=== PATIENT | female | born 1955 | race Caucasian/White ===

== ENCOUNTER 2016-07-31 11:31 | Outpatient (CLI) | payer OTHER ==
[2016-07-31 12:32] LABS: ALBUMIN 4.2 g/dL (3.4-4.8); CREATININE 0.78 mg/dL (0.55-1.30); POTASSIUM 4.8 mmol/L (3.5-5.1); TOTAL BILIRUBIN 0.4 mg/dL (0.0-1.0); TOTAL PROTEIN, SERUM 8.4 g/dL (6.4-8.3)
== END 2016-07-31 20:00 | disposition home or self-care (01) ==
LOC: SLB 11:31
PROVIDERS: ATTEND Internal Medicine
DX: I10 Essential (primary) hypertension (principal); R73.03 Prediabetes
CPT/HCPCS: 36415; 80053; 80061; 82306; 83036

== ENCOUNTER 2016-12-07 08:13 | Outpatient (CLI) | payer OTHER ==
[2016-12-07 09:05] LABS: CALCIUM 9.8 mg/dL (8.4-11.0); CREATININE 0.75 mg/dL (0.55-1.30); POTASSIUM 4.7 mmol/L (3.5-5.1); TOTAL BILIRUBIN 0.4 mg/dL (0.0-1.0); TOTAL PROTEIN, SERUM 8.8 g/dL (6.4-8.3)
== END 2016-12-07 21:01 | disposition home or self-care (01) ==
LOC: SLB 08:13
PROVIDERS: ATTEND Internal Medicine
DX: E11.8 Type 2 diabetes mellitus with unspecified complications (principal); I10 Essential (primary) hypertension
CPT/HCPCS: 36415; 80053; 80061; 83036

== ENCOUNTER 2017-01-30 10:50 | Outpatient (CLI) | payer OTHER | END 2017-01-30 19:08 | disposition home or self-care (01) | LOC: SCA 10:50 | PROVIDERS: ATTEND Internal Medicine Cardiovascular Disease | DX: I10 Essential (primary) hypertension (principal); E78.5 Hyperlipidemia, unspecified; M79.602 Pain in left arm | CPT/HCPCS: 93017 ==

== ENCOUNTER 2017-05-05 08:23 | Outpatient (CLI) | payer OTHER ==
[2017-05-05 11:41] LABS: POTASSIUM 4.3 mmol/L (3.5-5.1)
[2017-05-05 11:42] LABS: CALCIUM 9.8 mg/dL (8.4-11.0); CREATININE 0.59 mg/dL (0.55-1.30)
[2017-05-06 11:05] LABS: TOTAL BILIRUBIN 0.3 mg/dL (0.0-1.0)
[2017-05-06 11:06] LABS: ALBUMIN 4.2 g/dL (3.4-4.8)
[2017-05-07 19:07] LABS: CREATININE, URINE 87.7 mg/dL; MICROALBUMIN URINE RANDOM 3.4 ug/ml (NOT ESTABLISHED); MICROALBUMIN/CREAT RATIO, UR 3.9 MG/G CRE (0.0-30.0)
== END 2017-05-05 21:17 | disposition home or self-care (01) ==
LOC: SLB 08:23
PROVIDERS: ATTEND Internal Medicine
DX: I10 Essential (primary) hypertension (principal); E78.5 Hyperlipidemia, unspecified; R31.9 Hematuria, unspecified; R73.03 Prediabetes
CPT/HCPCS: 36415; 80053; 80061; 82043; 82570; 83036

== ENCOUNTER 2018-03-28 07:44 | Outpatient (CLI) | payer OTHER ==
[2018-03-28 08:53] LABS: CALCIUM 9.6 mg/dL (8.4-11.0); CREATININE 0.73 mg/dL (0.55-1.30); POTASSIUM 4.2 mmol/L (3.5-5.1)
[2018-03-28 08:59] LABS: ALBUMIN 3.8 g/dL (3.4-4.8); TOTAL BILIRUBIN 0.4 mg/dL (0.0-1.0)
== END 2018-03-28 11:00 | disposition home or self-care (01) ==
LOC: SLB 07:44
PROVIDERS: ATTEND Internal Medicine
DX: E11.9 Type 2 diabetes mellitus without complications (principal); E78.5 Hyperlipidemia, unspecified
CPT/HCPCS: 36415; 80053; 80061; 83036

== ENCOUNTER → 2018-11-05 | Outpatient (CLI) | payer OTHER ==
[2018-11-05 08:55] LABS: ALBUMIN 3.7 g/dL (3.4-4.8); CALCIUM 9.7 mg/dL (8.4-11.0); CREATININE 0.7 mg/dL (0.55-1.30); POTASSIUM 4.7 mmol/L (3.5-5.1); TOTAL BILIRUBIN 0.4 mg/dL (0.0-1.0)
[2018-11-08 17:01] LABS: HEMOGLOBIN A1C 6.8 % (4.8-5.6)
== END | disposition home or self-care (01) ==
LOC: SLB 07:53
PROVIDERS: ATTEND Internal Medicine
DX: E78.5 Hyperlipidemia, unspecified (principal); I10 Essential (primary) hypertension; E11.9 Type 2 diabetes mellitus without complications
CPT/HCPCS: 36415; 80053; 80061; 82306; 83036

== ENCOUNTER 2019-03-10 07:00 | Outpatient (CLI) | payer OTHER ==
[2019-03-10 09:37] LABS: CALCIUM 9.2 mg/dL (8.4-11.0); CREATININE 0.72 mg/dL (0.55-1.30); POTASSIUM 4.4 mmol/L (3.5-5.1); TOTAL BILIRUBIN 0.4 mg/dL (0.0-1.0)
[2019-03-11 11:36] LABS: HEMOGLOBIN A1C 7.1 % (4.8-5.6)
== END 2019-03-10 21:07 | disposition home or self-care (01) ==
LOC: SLB 07:00
PROVIDERS: ATTEND Internal Medicine
DX: E11.9 Type 2 diabetes mellitus without complications (principal); E78.5 Hyperlipidemia, unspecified; I10 Essential (primary) hypertension
CPT/HCPCS: 36415; 80053; 80061; 82306; 83036

== ENCOUNTER 2019-07-15 07:15 | Outpatient (CLI) | payer OTHER ==
[2019-07-15 09:19] LABS: ALBUMIN 4.1 g/dL (3.4-4.8); CALCIUM 9.4 mg/dL (8.4-11.0); CREATININE 0.68 mg/dL (0.55-1.30); POTASSIUM 3.6 mmol/L (3.5-5.1); TOTAL BILIRUBIN 0.4 mg/dL (0.0-1.0)
[2019-07-16 14:49] LABS: HEMOGLOBIN A1C 6.8 % (4.8-5.6)
== END 2019-07-15 19:37 | disposition home or self-care (01) ==
LOC: SLB 07:15
PROVIDERS: ATTEND Internal Medicine
DX: E11.9 Type 2 diabetes mellitus without complications (principal); E78.5 Hyperlipidemia, unspecified; R79.89 Other specified abnormal findings of blood chemistry; R73.03 Prediabetes
CPT/HCPCS: 36415; 80053; 80061; 82306; 83036

== ENCOUNTER 2020-07-10 07:29 | Outpatient (CLI) | payer OTHER ==
[2020-07-10 08:19] LABS: ALBUMIN 3.7 g/dL (3.4-4.8); CALCIUM 9.2 mg/dL (8.4-11.0); CREATININE 0.79 mg/dL (0.55-1.30); POTASSIUM 4.8 mmol/L (3.5-5.1); TOTAL BILIRUBIN 0.3 mg/dL (0.0-1.0)
[2020-07-14 11:51] LABS: HEMOGLOBIN A1C 7.5 % (4.8-5.6)
== END 2020-07-10 21:06 | disposition home or self-care (01) ==
LOC: SLB 07:29
PROVIDERS: ATTEND Internal Medicine
DX: E11.9 Type 2 diabetes mellitus without complications (principal); I10 Essential (primary) hypertension; E78.5 Hyperlipidemia, unspecified; E55.9 Vitamin D deficiency, unspecified
CPT/HCPCS: 36415; 80053; 80061; 82306; 83036